=== PATIENT | male | born 1975 | race Caucasian/White ===

== ENCOUNTER 2019-10-25 21:59 | Inpatient (IN) | payer OTHER ==
[~2019-10-25] VITALS: Ht 185.4 cm; Wt 103.0 kg
[2019-10-25 22:02] VITALS: Ht 185.4 cm; Wt 103.0 kg
--- NOTE | 2019-10-25 22:45 | NUR ---
MSE COMPLETED BY MD HARDWICK
--- NOTE | 2019-10-25 22:48 | NUR ---
PT HAS URINAL AT BEDSIDE AND INSTRUCTED TO ATTEMPT TO GIVE URINE AT THIS TIME. PT STATES UNABLE TO PROVIDE AT THIS TIME BUT WILL ATTEMPT SOON
--- NOTE | 2019-10-25 23:00 | NUR ---
AT BEDSIDE. WHEN ASKED ABOUT INCIDENCES SURROUNDING SEIZURE REPORTS "I HONESTLY DONT REMEMBER HOW LONG IT WAS BUT I GAVE HIM A LIQUID THAT SEEM TO CUT DOWN THE TIME" AND "THEY GAVE ME THAT MEDICATION FOR WHEN HE HAS SEIZURES". DOESNT RECALL MEDICATION TAKEN AT HOME BUT STATES SHE WILL ATTEMPT TO ACQUIRE A LIST FROM [facility].
--- NOTE | 2019-10-25 23:01 | NUR ---
LAB AT BEDSIDE
--- NOTE | 2019-10-25 23:05 | NUR ---
XRAY AT BEDSIDE.
[2019-10-25] MEDS ORDERED: LISINOPRIL20 MG PO (23:17)
[2019-10-25] MEDS ORDERED: CLONIDINE HCL0.1 M1 PO (23:17)
[2019-10-25] MEDS ORDERED: KEPPRA750 MG PO (23:18)
[2019-10-25] MEDS ORDERED: LABETALOL HYDR200 M1 PO (23:18)
[2019-10-25] MEDS ORDERED: PREDNISONE20 MG PO (23:19)
[2019-10-25] MEDS ORDERED: PROGRAF5 MG PO (23:19)
[2019-10-25] MEDS ORDERED: ASPIR 8181 MG PO (23:19)
[2019-10-25] MEDS ORDERED: ATORVASTATIN CA40 M1 PO (23:19)
[2019-10-25 23:25] LABS: CALCIUM 8.6 mg/dL (8.5-10.1); CARBON DIOXIDE 28.7 mmol/L (21-32); CHLORIDE SERUM 106 mmol/L (98-107); CREATININE SERUM 1.3 mg/dL (0.7-1.3); GFR1 > 60 mL/min; GLUCOSE SERUM 122 mg/dL (74-106); SODIUM SERUM 138 mmol/L (136-145)
[2019-10-25 23:28] LABS: BASOPHIL % 0.3 % (0-2); PLATELET COUNT 168 x10^3mcL (130-400); RED CELL DISTRIBUTION WIDTH 15.8 % (11.5-14.5)
[2019-10-25 23:30] LABS: ALKALINE PHOSPHATASE 51 U/L (46-116); ALT/SGPT 80 U/L (16-63); AST/SGOT 40 U/L (15-37); BILIRUBIN TOTAL 0.3 mg/dL (0.20-1.00)
[2019-10-25 23:34] LABS: ALBUMIN 3.3 g/dL (3.4-5.0)
--- NOTE | 2019-10-26 01:24 | NUR ---
CALLED TO BEDSIDE BY PT SIGNIFICANT OTHER FOR PT HAVING SEIZURE. SEIZURE LASTING APPROX 1 MIN, ROLLED ONTO RIGHT SIDE BY ROGER RN, TRINA RN, HERMINIO RN, AND LAURI RN. DR HARDWICK AT BEDSIDE FOR RE-EVALUATION. PT NOTED POSTICTAL AT THIS TIME. PT PLACED ON MASK AT 15 L, NOTED SATING AT 95%. PT NOT RESPONDING TO STIMULI AT THIS TIME NOTED SNORING. FULL CM AND [address] PER MD HARDWICK GIVE ATIVAN 2 MG IVP AT THIS TIME. SO AT BEDSIDE. WILL CONTINUE TO MONITOR.
--- NOTE | 2019-10-26 01:31 | NUR ---
PT TO RADIOLOGY VIA GURNEY BY [facility] [employer] OPERATOR. ACCOMPANIED BY TO CT AT THIS TIME.
--- NOTE | 2019-10-26 01:35 | NUR ---
REPORT GIVEN TO ALICIA SHAH, ALICIA TO ASSUME CARE OF PT AT THIS TIME.
--- NOTE | 2019-10-26 02:48 | NUR ---
PATIENT HAD CT SCAN DONE AND RETURN TO THE ROOM, VITAL SIGNS RECHECKED.
--- NOTE | 2019-10-26 03:14 | NUR ---
PATIENT REMAINS POSTICTAL, NO VERBAL REAPONSE. RESIDENT AT THE BEDSIDE TALKING TO THE FAMILY.
[2019-10-26 03:46] LABS: MAGNESIUM 1.7 mg/dL (1.8-2.4); PHOSPHOROUS 2.1 mg/dL (2.5-4.9)
[2019-10-26 03:47] LABS: CHOLESTEROL/HDL RATIO 1.8
--- NOTE | 2019-10-26 04:10 | NUR ---
REPORT WAS GIVEN TO TI. VALPROTATE INFUSING. UA STILL PENDING. PATIENT HAS NOT VOID. PATIENT TRANSPORTED TO ROOM 242B.
[2019-10-26 04:38] LABS: FREE T4 1.13 ng/dL (0.76-1.46); FREE THYROXINE INDEX 3.2 ug/dL (1.4-4.5); T4(THYROXINE) 8.3 ug/dL (4.7-13.3)
[2019-10-26 04:44] VITALS: BP 183/83
--- NOTE | 2019-10-26 05:08 | NUR ---
RECEIVED PT FROM FROM ED , ACCOMPANIED WITH AND ER NURSE. ADMIITED WITH COMPLAINTS OF RECENT SEIZURE. PT KEPT COMFORTABLE IN BED, DROWSY, BUT EASILY AROUSABLE. PLACED ON SEIZURE AND FALL PREC. SPEECH SLOW. PLACED ON TELE #21, SR ON THE MONITOR, DENIES PAIN OR ANY DISCOMFORT AT THIS TIME. AFEBRILE. B/P SHOWS 183/83, HYDRALAZINE IV GIVEN ORDERED. STARTED ON IVF,NS AT 100ML/HR, INFUISNG VIA RAC, SITE CLEAR. SKIN WARM AND DRY TO TOUCH. INTACT AND NO EDEMA NOTED. ORIENTED PT AND TO ROOM AND SURROUNDINGS. BED IN LOW POSITION. RESP. EVEN AND UNLABORED. LUNGS SOUNDS CLEAR BILAT. 02 AT 2L/MIN VIA NC, SAT. 95%. NO ACUTE DISTRESS NOTED. CALL LIGHT WITHIN REACH. WILL CONTINUE TO MONITOR.
[2019-10-26 06:27] VITALS: BP 144/73
--- NOTE | 2019-10-26 06:30 | NUR ---
B/P RECHECK SHOWS 144/73. AT THIS TIME. NO SEIZURE ACTIVITY NOTED. WILL CONTINUE TO MONITOR.
--- NOTE | 2019-10-26 07:35 | NUR ---
RECEIVED PT'S REPORT FROM LEAVING NURSE. PT SEEN REST ON BED WITH HIS AT BEDSIDE. SEIZURE PRECAUTION IN PLACE. PER PT'S STATED, PT WOKE UP SHORT TIME, TALKED TO HER THEN FELL BACK TO SLEEP. ALSO AFTER STROKE, PT HAS FOOTDROP ON R FOOT, AMBULATE WITH CANE. HE IS ABLE TO FEED HIMSELF. PT BREATHING ON O2 2L VIA NC, EVEN, UNLABORED. IV SITE PATENT, INTACT. IVF INFUSING WELL.
[2019-10-26 08:58] VITALS: BP 144/73
--- NOTE | 2019-10-26 10:04 | NUR ---
DR. CRUZ LEADING MEDICAL TEAM MAKE MORNING ROUND. PT'S AND MOM-IN-LAW AT BEDSIDE. PT'S CONDITION UPDATED.
--- NOTE | 2019-10-26 11:02 | NUR ---
JOHANNY CALLED AND SPOKE W/ TINO [employer] CUTTER AND UPDATED THE PATIENT CONDITION. SHE STATED SHE'LL CALL BACK FOR MORE INFORMATION ABOUT THE TRANSFER.
[2019-10-26] MEDS ORDERED: ECO81 PO (11:17)
[2019-10-26] MEDS ORDERED: KEPPRA1000 M1 PO (11:19)
[2019-10-26] MEDS ORDERED: ATI2I IV (11:20)
--- NOTE | 2019-10-26 12:00 | NUR ---
[facility] STAFF [facility] CALLED REGARDING PT'S TRANSFER. PT'S CODITION UPDATED. CHARGE NURSE AWARE.
--- NOTE | 2019-10-26 13:15 | NUR ---
PT'S MOTHER IN LAW AT BEDSIDE. PT IS EATING LUNCH, 80% INTAKE. PT IS AA/O X4, SLOW SPEECH BUT CLEAR. TRANFER ACKNOWLEDGEMENT SIGNED BY PT.
--- NOTE | 2019-10-26 13:49 | NUR ---
MADE DR. ALMARAZ AWARE PT'S PHOS 2.1, MG 1.7 LOW.
[2019-10-26 13:52] VITALS: BP 116/70
[2019-10-26 14:43] VITALS: BP 116/70
[2019-10-26 16:03] LABS: microscopic required? NO
[2019-10-26 16:11] LABS: UA SPECIFIC GRAVITY 1.015 (1.005-1.035); urine erythrocyte NEGATIVE (NEGATIVE)
[2019-10-26 16:20] LABS: AMPHETAMINE QUAL UR NONE DETECTED (See below)
--- NOTE | 2019-10-26 18:45 | NUR ---
PT'S REPORT GIVEN RECEIVING FACILITY NURSE YANIQUE. QUESIONS AND CONCERNS ADDRESSED. PT IS SCHEDULED TO [facility] AT 1999. PT'S AT BEDSIDE AND AWARE ABOUT THE TRANSFER. WILL ENDORSE ONCOMING NURSE TO FOLLOW UP PT TRANSFER.
[2019-10-26 19:30] VITALS: BP 120/70
--- NOTE | 2019-10-26 19:31 | NUR ---
LATEST VS GIVEN TO [place] RN.SHE CALLED [phone]/70,98% RA.
--- NOTE | 2019-10-26 19:37 | NUR ---
PATIENT JUST WAITING FOR RIDE,TO [facility],AT 1999,CONFIRMED.
--- NOTE | 2019-10-26 20:06 | NUR ---
PATIENT TRANSPORT HERE,[facility].QUICK REPORT GIVEN.ALL PAPERWORKS WITH THEM.TELE 21 REMOVED BT DIANA AND RETURNED TO TANGELA.PAKO OF PATIENT RFA INTACT.
== END 2019-10-26 20:06 | disposition short-term general hospital (02) | DRG 101 ==
LOC: ED 21:59 → DU 10-26 03:13
PROVIDERS: Emergency Medicine; ADMIT Internal Medicine
DX: R56.9 Unspecified convulsions (principal); E44.1 Mild protein-calorie malnutrition; Z94.0 Kidney transplant status; Z94.83 Pancreas transplant status; I10 Essential (primary) hypertension; E78.5 Hyperlipidemia, unspecified; Z79.899 Other long term (current) drug therapy; Z79.82 Long term (current) use of aspirin; Z86.73 Personal history of transient ischemic attack (TIA), and cerebral infarction without residual deficits; Z87.891 Personal history of nicotine dependence; E66.9 Obesity, unspecified; Z68.30 Body mass index [BMI] 30.0-30.9, adult; Z71.3 Dietary counseling and surveillance
CPT/HCPCS: 82962; 84439; 97112-GP; G0378; G0480; J0360; J1953; J2060; J3490; J7030; J7507; J7512